=== PATIENT | female | born 1945 | race Caucasian/White ===

== ENCOUNTER 2021-03-16 14:55 | Emergency (ER) | payer OTHER ==
[~2021-03-16] VITALS: Ht 162.6 cm; Wt 49.6 kg
[2021-03-16 14:55] VITALS: BP 107/69
--- NOTE | 2021-03-16 15:01 | NUR ---
1450--PT BIBA TO BED 03 VIA [facility].
[2021-03-16] MEDS ORDERED: NACL 0.9% 500 ML IV ONE (15:05)
--- NOTE | 2021-03-16 15:10 | NUR ---
75 YEAR OLD FEMALE BIBA FROM SNF FOR SYNCOPE EPISODE. PER EMS PT HAD SYNCOPE EPISODE IN WHEELCHAIR, THEN [facility] STARTED CPR ON PT, UPON ARRIVAL OF EMS PT HAD A PULSE. PT STATE SHE HAS NO COMPLAINTS AND DOES NOT UNDERSTAND WHY SHE IS HERE. PT DENIES CP, SOB, N/V/D, OR HEADACHE. PT AOX2 (NAME, LOCATION), BREATHING EVEN AND UNLABORED, SKIN WARM AND DRY. BED IN LOWEST POSITION, LOCKED, BED RAIL UPX1. PMH - HTN, THYROID DISEASE ALLERGIES - NKA
--- NOTE | 2021-03-16 15:30 | NUR ---
PT TOOK OUT IV, STATES "I DO NOT KNOW WHY". ERMD MADE AWARE
[2021-03-16] MEDS ORDERED: HALOPERIDOL IM 5 MG/ML VIAL IM ONE (15:35)
--- NOTE | 2021-03-16 16:00 | NUR ---
PT ALERT AND AWAKE, BREATHING EVEN AND UNLABORED. NO DISTRESS NOTED.
[2021-03-16] MEDS ORDERED: BEN50 PO (16:03)
[2021-03-16] MEDS ORDERED: EXE9.5T TD (16:03)
[2021-03-16] MEDS ORDERED: DONE10TA10 PO (16:03)
[2021-03-16] MEDS ORDERED: MELA5TAB21 PO (16:03)
[2021-03-16] MEDS ORDERED: APIX5TAB PO (16:03)
[2021-03-16] MEDS ORDERED: ACET-2619 PO (16:03)
[2021-03-16] MEDS ORDERED: SYN.05 PO (16:03)
[2021-03-16 16:48] LABS: BASOPHILS # (AUTO) 0.1 K/uL (0.00-0.22); BASOPHILS % (AUTO) 0.6 % (0.0-2.0); HEMATOCRIT 28.4 % (36-48); HEMOGLOBIN 9.3 g/dL (12.0-16.0); LYMPHOCYTES # (AUTO) 1.3 K/uL (2.5-16.5); LYMPHOCYTES % (AUTO) 15.1 % (20.5-51.1); MEAN CORPUSCULAR HEMOGLOBIN 28 pg (27-31); MEAN CORPUSCULAR HGB CONC 33 g/dL (33-37); MEAN CORPUSCULAR VOLUME 84.1 fL (80-94); MONOCYTES # (AUTO) 0.7 K/uL (0.8-1.0); MONOCYTES % (AUTO) 8.8 % (1.7-9.3); NEUTROPHILS # (AUTO) 6.4 K/uL (1.8-7.7); NEUTROPHILS % (AUTO) 75.5 % (42.2-75.2); PLATELET COUNT (AUTO) 589 K/uL (140-450); RED BLOOD CELL COUNT(AUTO) 3.37 MIL/uL (4.20-5.40); RED CELL DISTRIBUTION WIDTH 14.8 % (11.6-13.7); WHITE BLOOD COUNT (AUTO) 8.5 K/uL (4.8-10.8)
[2021-03-16 16:56] LABS: ANION GAP 17.2 (8-16); CARBON DIOXIDE 28.1 mmol/L (21-32); CHLORIDE 110 mmol/L (98-107); CREATININE 1.4 mg/dL (0.6-1.3); GLUCOSE 135 mg/dL (74-106); POTASSIUM 4.3 mmol/L (3.5-5.1); SODIUM SERUM 151 mmol/L (136-145); UREA NITROGEN, BLOOD 37 mg/dL (7-18)
[2021-03-16 16:59] LABS: PROTHROMBIN TIME 9.8 secs (10.8-13.4)
[2021-03-16 17:03] LABS: ALBUMIN 2.5 g/dL (3.4-5.0); BILIRUBIN,DIRECT 0.1 mg/dL (0.0-0.3); TOTAL BILIRUBIN 0.2 mg/dL (0.0-1.0)
[2021-03-16] MEDS ORDERED: OLANZapine 10 MG VIAL IM ONE (17:20)
[2021-03-16] MEDS ORDERED: WATER STERILE 10 ML MC ONE (17:26)
--- NOTE | 2021-03-16 17:30 | NUR ---
PT ALERT AND AWAKE, BREATHING EVEN AND UNLABORED. NO DISTRESS NOTED.
--- NOTE | 2021-03-16 19:19 | NUR ---
REPORT GIVEN TO NATE RN, TRANSFER OF CARE AT THIS TIME
--- NOTE | 2021-03-16 19:20 | NUR ---
RECEIVED REPORT FROM POLA BENDER FOR CONTINUITY OF CARE.
--- NOTE | 2021-03-16 19:45 | NUR ---
CALLED REPORT TO POLA MALIK AT [facility].
--- NOTE | 2021-03-16 20:35 | NUR ---
Patient semi-fowlers position. Patient agitated, and emotional but can be calmed with therapeutic communication. Vital Signs within normal limits. Respirations even and unlabored. safety measures placed, will continue to monitor.
[2021-03-16 21:08] VITALS: BP 149/96
--- NOTE | 2021-03-16 21:08 | NUR ---
Patient to be transferred to [facility]. Is being transferred due to higher level of care. Receiving facility has accepting physician and available space. ER physician has signed transfer form. Patient or responsible republican has agreed to transfer and signed form. Patient belongings inventoried and will be sent with patient. Copy of nursing notes, lab reports, EKG, Physicians Orders and X-rays to be sent with patient. Report called to POLA العلي at receiving facility. [facility] ambulance service has been called for transfer.
== END 2021-03-16 21:08 | disposition short-term general hospital (02) ==
LOC: MED 14:55
DX: R55 Syncope and collapse (principal); E86.0 Dehydration; D64.9 Anemia, unspecified; I10 Essential (primary) hypertension; E07.9 Disorder of thyroid, unspecified
CPT/HCPCS: 36415; 70450; 71045; 80048; 80076; 83880; 84484; 85025; 85610; 87426; 93005; 96372; 99285; J1630; J3490